=== PATIENT | female | born 1990 | race Caucasian/White ===

== ENCOUNTER 2020-11-26 17:38 | Inpatient (IN) ==
[2020-11-26] MEDS ORDERED: OXYTOCIN 30 UNITS/500 ML BAG IV PRN (18:51)
[2020-11-26 19:15] LABS: Hematocrit (blood only) 39.7 % (37-47); Hemoglobin 13.6 g/dL (12.0-16.0); Mean Corpuscular Hemoglobin 31.4 pg (25-34); Mean Corpuscular Hgb Conc 34.3 g/dL (32-36); Mean Corpuscular Volume 91.7 fL (80-100); Mean Platelet Volume 9.7 fL (7.4-10.4); Platelet Count 199 K/uL (130-400); RDW Coefficient of Variation 13.5 % (11.5-14.5); RDW Standard Deviation 45.3 fL (36.4-46.3); Red Blood Count 4.33 M/uL (4.2-5.4); White Blood Count 13.69 K/uL (4.8-10.8)
--- NOTE | 2020-11-26 19:32 | History & Physical Report ---
Date of Service November 26, 2020 Assessment & Plan (1) Post term over 40 weeks: (2) PROM (premature rupture of membranes): Plan: admit, iv, labs fhts categ 1, will see how prom progresses labor. History of Present Illness Chief Complaint: regular ctx Primary Care Provider: Romel Zapien Jr, DO 30yo at 40 6/7 wks speedy presents to L&D with above cc. She was at first thinking her water may be leaking but nitrazine neg and no pads soaked. Her cx was unchanged and she was walking. Then had gross srom clear fluid and admitted. No vb. +FM. PNC c/b 1. h/o covid vaccine and then +covid in sep 2020 PNL Rh pos, RI, GBS neg OBH: G1 GYNH: nl paps no stds Allergies Allergy/AdvReac Type Severity Reaction Status Date / Time No Known Allergies Allergy Verified 11/26/20 18:25 Home Medications Medication Instructions Recorded Confirmed Type prenat.vits,hellen,jgd-jjuo-jytlr 1 tab PO DAILY 08/03/20 11/26/20 History ferrous sulfate 325 mg (65 mg 325 mg PO Q OTHER DAY 11/26/20 11/26/20 History iron) tablet (iron) Patient History Surgical History (Updated 08/03/20 @ 13:28 by Rebekah King) S/P wisdom tooth extraction Family History (Updated 08/03/20 @ 13:10 by Rebekah King) Other Cancer Social History (Updated 08/03/20 @ 13:12 by Rebekah King) Smoking Status: Never smoker Hx Alcohol Use: No Hx Substance Use: No Preferred Language: Georgian Communication Ability: Effective Beliefs That Will Affect Care: None marital status: marital status details: Salvador (29) [phone] Current Living Situation: Spouse and Family Current Living Situation Comment: parents, sister, current occupational status: employed current occupation: write grants, works non profit Assistive Devices: Apnea Monitor Review of Systems as per Subjective / HPI Physical Exam Constitutional: WD/WN, vitals as above (lying over ball on floor. rocking) Neurologic: grossly normal Psychiatric: A+Ox3, euthymic affect Genitourinary: OB Exam Monitor Tracing: + external FHT monitor used, + external uterine monitor used (q3), + category I and + normal FHT variability Results & Data ([facility]) Vital Signs (Past 12 Hours) Vital Signs Temp Pulse Resp BP 11/26/20 19:15 97.7 F 118 H 20 122/72 11/26/20 17:47 111 H 127/75 11/26/20 17:44 98.4 F 20 Coding Level of Care Code None Diagnoses Post term over 40 weeks O48.0 PROM (premature rupture of membranes) O42.90
[2020-11-26] MEDS ORDERED: fentaNYL citrate 100 MCG/2 ML VIAL ONE (20:43)
[2020-11-26] MEDS ORDERED: SODIUM CHLORIDE 0.9% INJ 10 ML VIAL ONE (20:43)
[2020-11-26] MEDS ORDERED: BUPIVACAINE 0.25% 30 ML VIAL ONE (20:43)
[2020-11-26] MEDS ORDERED: ePHEDrine sulfate 50 MG/ML AMP ONE (20:43)
[2020-11-26] MEDS ORDERED: fentaNYL 2MCG/ML ROPIVACAINE 1.25MG/ML 100 ML BAG EPI ONE (20:43)
[2020-11-26] MEDS: LACTATED RINGER'S 1,000 ML IV PRN ×2 (20:50→22:29)
--- NOTE | 2020-11-26 21:29 | Anesthesiology Consultation ---
Date of Service November 26, 2020 Assessment & Plan Chart Review Chart Review: Patient NOT seen in Pre Admission Testing and Acceptable Risk for Labor Epidural Consults Requested none ASA ASA2 Proposed Anesthesia Anesthesia Type: Labor Epidural Risk / Benefits Reviewed With: PT / POA / Parent / Guardian, Accepts Plan and Informed Consent Obtained History Height/Weight Height: 5 ft 4 in Weight: 71.668 kg Allergies Allergy/AdvReac Type Severity Reaction Status Date / Time No Known Allergies Allergy Verified 11/26/20 18:25 Medications Home Medications Medication Instructions Recorded Confirmed Last Taken prenat.vits,hellen,ckg-jdtw-kkcnx 1 tab PO DAILY 08/03/20 11/26/20 11/26/20 ferrous sulfate 325 mg (65 mg 325 mg PO Q OTHER DAY 11/26/20 11/26/20 11/25/20 iron) tablet (iron) Active Medications Generic Name Dose Route Start Last Admin Trade Name Freq PRN Reason Stop Dose Admin Lactated Ringer's 1,000 mls @ 125 mls/hr 11/26/20 18:51 11/26/20 20:50 Lr IV 11/28/20 18:50 999 mls/hr .Q8H PRN Infusion L&D Protocol Protocol Exercise / Class Metabolic Activity II 4-5 Yardwork/Stairs/Walk up hill Past Family History Family History (Updated 08/03/20 @ 13:10 by Rebekah King) Other Cancer Past Surgical History Surgical History (Updated 08/03/20 @ 13:28 by Rebekah King) S/P wisdom tooth extraction Past Anesthesia History No Hx of Anesthesia Complications and No Family Hx of Anesthesia Complications History of PONV No Hx of PONV and No Hx of Motion Sickness Social History Smoking Status: Never smoker Hx Alcohol Use: No Hx Substance Use: No Physical Exam Vital Signs Last Vital Signs Temp 36.6 C 11/26/20 21:05 Pulse 118 H 11/26/20 19:15 Resp 20 11/26/20 19:15 BP 122/72 11/26/20 19:15 ENMT Mouth: no dentition abnormality Thyromental Distance: > or= 3.5 Finger Breadths Mallampati Class: II Neck normal visual inspection Respiratory normal respiratory effort Auscultation: lungs clear to auscultation bilaterally Cardiovascular Rate/Rhythm: regular rate and regular rhythm Psychiatric Orientation: alert Testing Laboratory Results 11/26/20 19:07
[2020-11-26] MEDS ORDERED: diphenhydrAMINE 50 MG/ML VIAL IV PRN (21:44)
[2020-11-26] MEDS ORDERED: ePHEDrine sulfate 50 MG/ML AMP IV PRN (21:44)
[2020-11-26] MEDS ORDERED: fentaNYL 2MCG/ML ROPIVACAINE 1.25MG/ML 100 ML BAG EPI PRN (21:44)
[2020-11-26] MEDS ORDERED: NALOXONE HCL 1 MG in SODIUM CHLORIDE 0.9% 1000ML 1,000 ML IV PRN (21:44)
[2020-11-26] MEDS ORDERED: NALOXONE HCL 0.4 MG/1 ML VIAL/CARP IV PRN (21:44)
[2020-11-26] MEDS ORDERED: ONDANSETRON INJ 2 MG/ML 2 ML VIAL IV PRN (21:44)
[2020-11-26] MEDS ORDERED: PROMETHAZINE HCL 6.25 MG in SODIUM CHLORIDE 0.9% 50 ML IV PRN (21:44)
[2020-11-26] MEDS ORDERED: NALBUPHINE HCL INJ 10 MG/ML AMP IV PRN (21:44)
--- NOTE | 2020-11-26 22:14 | Labor Progress Brief Note ---
Date of Service November 26, 2020 Subjective comfortable after epidural Assessment & Plan (1) Post term over 40 weeks: (2) PROM (premature rupture of membranes): Plan: good cx change. fhts reassuring Physical Exam Constitutional: WD/WN, vitals as above Gastrointestinal (Abdomen): soft gravid nt, efw 7-8# Genitourinary: Manual OB Exam: + cervical dilation (7-8cm), + cervical effacement 100% and + station 0 OB Exam Monitor Tracing: + external FHT monitor used, + external uterine monitor used, + category II, + normal FHT variability and + variable decelerations (recent variable, recovered and now +scalp stim response and spont accels) Results & Data ([facility]) Vital Signs (Past 12 Hours) Vital Signs Temp Pulse Resp BP Pulse Ox 11/26/20 22:07 96 H 103/54 L 100 11/26/20 22:03 114 H 92/54 L 11/26/20 22:02 110 H 98 11/26/20 22:00 113 H 109/52 L 11/26/20 21:57 109 H 99 11/26/20 21:52 103 H 98 11/26/20 21:51 100 H 112/56 L 11/26/20 21:47 109 H 99 11/26/20 21:45 104 H 114/58 L 11/26/20 21:43 100 H 120/60 11/26/20 21:42 103 H 98 11/26/20 21:41 117 H 130/65 11/26/20 21:39 113 H 129/67 11/26/20 21:37 117 H 99 11/26/20 21:33 113 H 130/71 11/26/20 21:32 113 H 99 11/26/20 21:05 97.9 F 11/26/20 19:15 97.7 F 118 H 20 122/72 11/26/20 17:47 111 H 127/75 11/26/20 17:44 98.4 F 20 Coding Level of Care Code None Diagnoses Post term over 40 weeks O48.0 PROM (premature rupture of membranes) O42.90
[2020-11-27] MEDS: LACTATED RINGER'S 1,000 ML IV PRN (06:22)
[2020-11-27] MEDS ORDERED: OXYTOCIN 30 UNITS/500 ML BAG IV PRN ×2 (07:10→08:38)
--- NOTE | 2020-11-27 07:10 | Labor Progress Brief Note ---
Date of Service November 27, 2020 Subjective pushing Assessment & Plan (1) Post term over 40 weeks: (2) PROM (premature rupture of membranes): Plan: cont 2nd stage, fhts categ 1. change position to help rotation. pit aug if needed. Admission and Anticipated Discharge Date Admission Date: November 26, 2020 Physical Exam Constitutional: WD/WN, vitals as above Genitourinary: Manual OB Exam: + cervical dilation (lip reduced with one push), + cervical effacement 100% and + station + 2 OB Exam Monitor Tracing: + external FHT monitor used, + external uterine monitor used (q3-5), + category I and + normal FHT variability Results & Data ([facility]) Vital Signs (Past 12 Hours) Vital Signs Temp Pulse Resp BP Pulse Ox 11/27/20 07:07 115 H 97 11/27/20 07:02 120 H 121/58 L 97 11/27/20 06:57 118 H 97 11/27/20 06:52 133 H 97 11/27/20 06:49 133 H 92 11/27/20 06:47 144 H 96 11/27/20 06:45 127 H 142/63 H 11/27/20 06:42 134 H 96 11/27/20 06:37 117 H 96 11/27/20 06:32 111 H 97 11/27/20 06:31 110 H 127/71 11/27/20 06:30 20 11/27/20 06:27 109 H 96 11/27/20 06:22 108 H 96 11/27/20 06:17 105 H 96 11/27/20 06:15 107 H 116/55 L 11/27/20 06:12 110 H 97 11/27/20 06:08 124 H 94 11/27/20 06:07 112 H 96 11/27/20 06:02 115 H 96 11/27/20 06:01 118 H 113/58 L 11/27/20 06:00 20 11/27/20 05:57 113 H 97 11/27/20 05:52 112 H 97 11/27/20 05:47 112 H 97 11/27/20 05:46 107 H 123/65 11/27/20 05:42 111 H 97 11/27/20 05:39 98.2 F 11/27/20 05:37 111 H 97 11/27/20 05:32 99 H 96 11/27/20 05:30 102 H 16 105/52 L 11/27/20 05:27 95 H 96 11/27/20 05:22 100 H 96 11/27/20 05:17 102 H 95 11/27/20 05:15 103 H 110/55 L 11/27/20 05:12 108 H 96 11/27/20 05:07 99 H 96 11/27/20 05:02 100 H 96 11/27/20 05:00 105 H 16 105/51 L 11/27/20 04:57 94 H 95 11/27/20 04:52 98 H 95 11/27/20 04:47 105 H 96 11/27/20 04:46 99 H 109/53 L 11/27/20 04:42 104 H 96 11/27/20 04:37 97 H 96 11/27/20 04:32 96 H 96 11/27/20 04:30 97 H 16 105/51 L 11/27/20 04:27 99 H 96 11/27/20 04:22 98 H 96 11/27/20 04:17 104 H 97 11/27/20 04:16 96 H 102/53 L 11/27/20 04:12 100 H 96 11/27/20 04:07 105 H 97 11/27/20 04:02 106 H 98 11/27/20 04:01 104 H 118/57 L 11/27/20 04:00 16 11/27/20 03:57 103 H 97 11/27/20 03:52 104 H 98 11/27/20 03:47 108 H 97 11/27/20 03:45 107 H 120/59 L 11/27/20 03:42 117 H 97 11/27/20 03:37 115 H 97 11/27/20 03:32 114 H 98 11/27/20 03:31 107 H 117/57 L 11/27/20 03:30 98.6 F 18 11/27/20 03:27 102 H 97 11/27/20 03:22 104 H 97 11/27/20 03:17 101 H 98 11/27/20 03:16 104 H 106/58 L 11/27/20 03:12 104 H 97 11/27/20 03:07 102 H 97 11/27/20 03:02 109 H 108/63 97 11/27/20 02:57 101 H 96 11/27/20 02:52 108 H 96 11/27/20 02:47 106 H 96 11/27/20 02:45 100 H 103/55 L 11/27/20 02:42 100 H 96 11/27/20 02:37 96 H 96 11/27/20 02:32 103 H 95 11/27/20 02:30 101 H 16 101/53 L 11/27/20 02:27 98 H 95 11/27/20 02:22 102 H 96 11/27/20 02:20 97 H 94 11/27/20 02:17 99 H 96 11/27/20 02:15 100 H 100/55 L 11/27/20 02:12 97 H 95 11/27/20 02:08 95 H 94 11/27/20 02:07 94 H 94 11/27/20 02:02 100 H 95 11/27/20 02:00 101 H 16 98/52 L 11/27/20 01:57 103 H 96 11/27/20 01:52 101 H 96 11/27/20 01:47 100 H 96 11/27/20 01:45 99 H 96/50 L 11/27/20 01:42 104 H 96 11/27/20 01:37 101 H 96 11/27/20 01:32 105 H 96 11/27/20 01:31 102 H 100/55 L 11/27/20 01:30 18 11/27/20 01:27 103 H 96 11/27/20 01:22 103 H 98 11/27/20 01:17 114 H 95 11/27/20 01:16 127 H 117/64 11/27/20 01:12 113 H 98 11/27/20 01:09 98.6 F 11/27/20 01:07 118 H 97 11/27/20 01:02 108 H 96 11/27/20 01:00 106 H 16 118/61 11/27/20 00:57 110 H 97 11/27/20 00:52 103 H 96 11/27/20 00:47 105 H 97 11/27/20 00:45 112 H 113/57 L 11/27/20 00:42 114 H 97 11/27/20 00:37 107 H 97 11/27/20 00:32 106 H 97 11/27/20 00:30 113 H 16 110/59 L 11/27/20 00:27 106 H 97 11/27/20 00:22 102 H 97 11/27/20 00:17 102 H 97 11/27/20 00:15 107 H 114/60 11/27/20 00:12 107 H 97 11/27/20 00:07 100 H 97 11/27/20 00:02 103 H 97 11/27/20 00:00 110 H 16 108/58 L 11/26/20 23:57 101 H 98 11/26/20 23:52 105 H 97 11/26/20 23:47 104 H 97 11/26/20 23:45 104 H 106/56 L 11/26/20 23:42 98 H 97 11/26/20 23:37 110 H 97 11/26/20 23:32 112 H 98 11/26/20 23:31 106 H 119/57 L 11/26/20 23:30 18 11/26/20 23:27 99 H 98 11/26/20 23:22 115 H 98 11/26/20 23:17 119 H 98 11/26/20 23:15 108 H 103/58 L 11/26/20 23:12 98.4 F 98 H 99 11/26/20 23:07 95 H 97 11/26/20 23:02 94 H 97 11/26/20 23:00 16 11/26/20 22:59 96 H 99/52 L 11/26/20 22:57 95 H 97 11/26/20 22:54 102 H 98/55 L 11/26/20 22:52 90 97 11/26/20 22:49 96 H 96/47 L 11/26/20 22:47 88 97 11/26/20 22:45 89 18 97/51 L 11/26/20 22:42 97 H 97 11/26/20 22:40 93 H 16 100/50 L 11/26/20 22:37 94 H 97 11/26/20 22:34 97 H 16 104/51 L 11/26/20 22:32 95 H 98 11/26/20 22:30 16 11/26/20 22:29 103 H 16 106/50 L 11/26/20 22:27 108 H 98 11/26/20 22:26 101 H 18 115/51 L 11/26/20 22:22 100 H 99 11/26/20 22:19 102 H 18 134/56 L 11/26/20 22:17 103 H 98 11/26/20 22:15 103 H 16 95/51 L 11/26/20 22:12 96 H 99 11/26/20 22:07 96 H 16 103/54 L 100 11/26/20 22:03 114 H 18 92/54 L 11/26/20 22:02 110 H 98 11/26/20 22:00 113 H 18 109/52 L 11/26/20 21:57 109 H 99 11/26/20 21:52 103 H 98 11/26/20 21:51 100 H 16 112/56 L 11/26/20 21:47 109 H 99 11/26/20 21:45 104 H 18 114/58 L 11/26/20 21:43 100 H 20 120/60 11/26/20 21:42 103 H 98 11/26/20 21:41 117 H 18 130/65 11/26/20 21:39 113 H 18 129/67 11/26/20 21:37 117 H 99 11/26/20 21:33 113 H 18 130/71 11/26/20 21:32 113 H 99 11/26/20 21:05 97.9 F 11/26/20 19:15 97.7 F 118 H 20 122/72 Coding Level of Care Code None Diagnoses Post term over 40 weeks O48.0 PROM (premature rupture of membranes) O42.90
--- NOTE | 2020-11-27 08:24 | Delivery Summary ---
Vaginal Delivery Summary Date of Service November 27, 2020 Vaginal Delivery Summary and 2nd Degree LAC The patient dilated to complete and pushed to deliver a viable female Apgars 8 and 9 via over 2nd degree perineal laceration. Mouth and nose bulb suctioned at perineum. Meconium fluid noted. Shoulders and body delivered with ease. Infant was vigorous and crying at . Cord clamped at 30 seconds of life and infant to maternal abdomen where the cord was then doubly clamped and cut. Placenta delivered spontaneously and intact, three-vessel cord. Hemostasis achieved with dilute pitocin and uterine massage and drainage of the bladder for approximately 100 cc under sterile conditions. Laceration repaired in routine fashion in layers with 3-0 vicryl. Cervix and sulci intact. EBL 300 cc. Mother and baby stable in recovery. [facility] [place] Vaginal Delivery Charge Vaginal Delivery Codes: 84958 global code for the antepartum, delivery, and post- Delivery Type Details: and 2nd Degree LAC
[2020-11-27] MEDS ORDERED: bisacodyL 10 MG SUPP PR PRN (08:38)
[2020-11-27] MEDS ORDERED: HYDROCORTISONE ACETATE 25 MG SUPP PR PRN (08:38)
[2020-11-27] MEDS ORDERED: DIPHTHERIA/TETANUS/PERTUSSIS 0.5 ML SYR/VIAL IM ONE (08:38)
[2020-11-27] MEDS ORDERED: ACETAMINOPHEN 325 MG TAB PO PRN (08:38)
[2020-11-27] MEDS ORDERED: BENZOCAINE 20% AER SPR 82.5 GM CAN EXT PRN (08:38)
[2020-11-27] MEDS ORDERED: oxyCODONE/ACETAMINOPHEN 5mg/325mg TAB PO PRN (08:38)
[2020-11-27] MEDS ORDERED: SUPERCREAM 0.870% 15 GM JAR EXT PRN (08:38)
[2020-11-27] MEDS ORDERED: OXYTOCIN 20 UNITS in LACTATED RINGER'S 1,000 ML IV SCH (09:00)
[2020-11-27] MEDS: IBUPROFEN 600 MG TAB PO PRN ×3 (10:17→20:43)
--- NOTE | 2020-11-27 10:33 | Anesthesia Procedure Note ---
Date of Service November 27, 2020 Anesthesia Post Epidural Note Vital Signs Vital Signs: Temp Pulse Resp BP Pulse Ox 36.9 C 97 H 20 112/60 96 11/27/20 07:10 11/27/20 10:21 11/27/20 10:20 11/27/20 10:21 11/27/20 08:09 Pain Intensity Bilateral Abdomen: Pain Intensity: 4 Perineal: Pain Intensity: 4 Notes Mental Status: alert / awake / arousable and participated in evaluation Nausea / Vomiting: adequately controlled Pain: adequately controlled Airway Patency, RR, SpO2: stable & adequate BP & HR: stable & adequate Hydration State: stable & adequate Neuraxial Anesthesia: was administered and sensory block is resolving Anesthetic Complications: no major complications apparent and Pt Satisfied with anesthetic care Epidural: Removed without complications and With tip intact Notes: Epidural site clean, dry and intact. No signs of edema, erythema or bruising at insertion site. Pt instructed to request anesthesia if she has residual lower extremity numbness or if she develops lower extremity pain or weakness, back pain or headache.
[2020-11-27] MEDS: DOCUSATE SODIUM 100 MG CAP PO SCH (20:43)
[2020-11-28] MEDS: IBUPROFEN 600 MG TAB PO PRN (05:52)
[2020-11-28 06:25] LABS: Hematocrit (blood only) 35.2 % (37-47); Hemoglobin 11.4 g/dL (12.0-16.0)
--- NOTE | 2020-11-28 06:29 | Obstetrical Progress Note ---
Date of Service <Kishor Ramos DO - Last Filed: 11/28/20 06:29> November 28, 2020 Assessment & Plan <Kishor Ramos - Last Filed: 11/28/20 06:29> (1) care following vaginal delivery: 30 yo PPD 1 s/p at 41weeks -Continue routine care. Possible D/C this afternoon. -Vitals reviewed- HDS, afebrile -A+, GBS-, Rubella immune -Encourage ambulation, regular diet -Pain control with ibuprofen, acetaminophen PRN -Encouraged -F/u in 6 weeks with OB <Teri Lechuga, - Last Filed: 11/28/20 08:05> (1) care following vaginal delivery: Subjective <Kishor Ramos - Last Filed: 11/28/20 06:29> Ambulation: ambulating normally Voiding: no voiding problems Passing Gas:: Yes Diet Tolerance:: regular diet Lochia:: Moderate Feeding Type:: breast feeding Current Pain Level(1-10): 3 PPD 1 s/p . Patient seen and examined at bedside. Reports no acute overnight events. Review of Systems All systems reviewed & are unremarkable except as noted in HPI & below Physical Exam <Kishor Ramos DO - Last Filed: 11/28/20 06:29> General: Alert, oriented, no acute distress Cardiac: Regular rate and rhythm, normal S1, S2. No murmurs appreciated. Respiratory: Clear to auscultation b/l with good air flow entry, symmetric chest rise and fall. No wheezes or crackles. No increased work of breathing or accessory muscle use Abdomen: Soft, nontender, nondistended. Fundus firm and palpable at the level of the umbilicus. No guarding or rebound. Skin: No rashes or lesions Extremities: Warm, dry, well-perfused with capillary refill <2s b/l. No lower extremity edema, erythema or swelling. Negative Rosa Maria's sign b/l. Results & Data ([facility]) <Kishor Ramos - Last Filed: 11/28/20 06:29> Vital Signs (Past 12 Hours) Vital Signs Temp Pulse Resp BP Pulse Ox 11/28/20 05:30 99 H 18 113/76 11/27/20 23:25 36.3 C L 112 H 18 125/77 11/27/20 19:50 36.9 C 100 H 20 112/66 96 <Teri Lechuga DO - Last Filed: 11/28/20 08:05> Co-Signing Physician Notes Resident Physician Supervision Note: I was present with Dr. Ramos during the history and exam. I discussed the case with the resident and agree with the findings and plan as documented in the note. Any exceptions or clarifications are listed here: PPD#1 doing well, ej es discharge home. Reviewed DC instructions, followup in office 6w. Documented By: eTri Lechuga DO
[2020-11-28] MEDS ORDERED: PRENATAL VITAMIN 1 TAB PO SCH (08:00)
[2020-11-28] MEDS: DOCUSATE SODIUM 100 MG CAP PO SCH (08:54)
[2020-11-28] MEDS ORDERED: bisacodyL 5 MG TABEC PO SCH (20:00)
== END 2020-11-28 12:35 | disposition home or self-care (01) | DRG 807 ==
LOC: OPB 17:38 → 4S1 17:39 → 4S2 11-27 11:44

== ENCOUNTER 2023-01-24 09:21 | Inpatient (IN) ==
[2023-01-24] MEDS ORDERED: LIDOCAINE 1% LOCAL 20 ML VIAL INFIL PRN (10:10)
[2023-01-24] MEDS ORDERED: OXYTOCIN 30 UNITS/NSS 30 UNITS/500 ML BAG IV PRN ×2 (10:10→16:22)
[2023-01-24] MEDS: LACTATED RINGER'S 1,000 ML IV PRN ×2 (10:30→12:08)
[2023-01-24 10:37] LABS: Hematocrit (blood only) 42.7 % (37.0-47.0); Hemoglobin 14.4 g/dl (12.0-16.0); Mean Corpuscular Hgb Conc 33.7 g/dL (32.0-36.0); Mean Corpuscular Volume 91.8 fL (80.0-100.0); Mean Platelet Volume 9.6 fL (9.4-12.4); Platelet Count 201 K/uL (130-400); RDW Coefficient of Variation 13.3 % (11.5-14.5); RDW Standard Deviation 45.1 fL (36.4-46.3); Red Blood Count 4.65 M/uL (4.20-5.40); White Blood Count 9.26 K/ul (4.8-10.8)
[2023-01-24] MEDS ORDERED: SODIUM CHLORIDE 0.9% PF INJ 10 ML VIAL ONE (10:46)
[2023-01-24] MEDS ORDERED: ePHEDrine sulfate 50 MG/ML AMP ONE (10:46)
[2023-01-24] MEDS ORDERED: BUPIVACAINE 0.25% PF 30 ML VIAL ONE (10:46)
[2023-01-24] MEDS ORDERED: fentaNYL citrate PF 100 MCG/2 ML VIAL ONE (10:46)
[2023-01-24] MEDS ORDERED: LIDOCAINE 2%/EPINEPHRINE 1:200,000 20 ML PF ONE (10:46)
[2023-01-24] MEDS ORDERED: fentANYL 2 MCG/ML BUPIVacaine 0.125%-NSS 100ML BAG ONE (10:46)
--- NOTE | 2023-01-24 10:53 | History & Physical Report ---
Date of Service January 24, 2023 Assessment & Plan (1) Encounter for supervision of normal in multigravida: Plan: AUBREE Calculator Estimated Delivery Date Method Current WG Current Estimate 01/19/23 Ultrasound #1 40w 2d Other Estimates 01/14/23 LMP (Certain) 41w 0d LMP: 04/09/22 : 2 Full term: 1 Premature: 0 Total Number of Induced Abortions: 0 Total Number of Spontaneous Abortions: 0 Ectopics: 0 Multiple births: 0 Number of Living Children: 1 and Delivery Plans Transfer into care @ 33+ weeks Patient reports received flu shot admit Admission and Anticipated Discharge Date Admission Date: January 24, 2023 History of Present Illness Primary Care Provider: Romel Zapien Jr, DO presents in labor Allergies Allergy/AdvReac Type Severity Reaction Status Date / Time No Known Allergies Allergy Verified 01/21/23 10:35 Home Medications Medication Instructions Recorded Confirmed Type prenat.vits,hellen,suv-vnvl-fdjkz 1 tab PO DAILY 08/03/20 01/24/23 History RSV vac, preF A and preF B(PF) 120 0.5 ml IM ONCE #1 ea 12/17/22 01/21/23 Rx mcg/0.5 mL IM solution ([facility]) Patient History Medical History History of chicken pox Surgical History S/P wisdom tooth extraction Family History (Updated 12/01/22 @ 15:09 by Cecille Felipe) Grandfather (Maternal) Skin cancer Family/Other Breast cancer cousin Denies family history of Ovarian cancer Colorectal cancer Social History (Updated 12/01/22 @ 15:10 by Cecille Felipe) Smoking Status: Never smoker Second Hand Exposure: No; Do You Dip or Chew Tobacco: No; Hx Alcohol Use: No Hx Substance Use: No Preferred Language: Romansh Communication Ability: Effective Overlock Operator Required: No Beliefs That Will Affect Care: None marital status: marital status details: Salvador Fairchild (31) [phone] Current Living Situation: Family Current Living Situation Comment: lives with spouse, child, no pets current occupational status: employed current occupation: write grants, works non profit Other Information That Helps Us Care for You: No Feels Safe at Home: Yes Safety Concerns: Feels Safe At This Time Assistive Devices: None Physical Exam Constitutional: WD/WN, vitals as above well developed and well nourished Respiratory: normal respiratory effort, lungs clear to auscultation normal respiratory effort Cardiovascular: RRR, no murmur, no edema Gastrointestinal (Abdomen): normal bowel sounds, soft, nontender, no hepatosplenomegaly Results & Data Vital Signs (Past 12 Hours) Vital Signs Temp Pulse Resp BP 01/24/23 09:49 98.4 F 114 H 20 135/77 01/24/23 09:39 114 H 135/77 Coding Level of Care Code None Diagnoses Encounter for supervision of normal in multigravida Z34.80
--- NOTE | 2023-01-24 11:06 | Anesthesiology Consultation ---
Date of Service January 24, 2023 Assessment & Plan Chart Review Chart Review: Acceptable Risk for Surgery and Patient NOT seen in Pre Admission Testing Consults Requested none ASA ASA2 Proposed Anesthesia Anesthesia Type: Labor Epidural and CSE History Height/Weight Height: 5 ft 4 in Weight: 72.575 kg Allergies Allergy/AdvReac Type Severity Reaction Status Date / Time No Known Allergies Allergy Verified 01/21/23 10:35 Medications Home Medications Medication Instructions Recorded Confirmed Last Taken prenat.vits,hellen,rkh-evkh-oaxtk 1 tab PO DAILY 08/03/20 01/24/23 01/23/23 RSV vac, preF A and preF B(PF) 120 0.5 ml IM ONCE #1 ea 12/17/22 01/21/23 Unknown mcg/0.5 mL IM solution (Abrysvo) Past Medical History Medical History History of chicken pox Exercise / Class Metabolic Activity II 4-5 Yardwork/Stairs/Walk up hill Past Family History Family History Grandfather (Maternal) Skin cancer Family/Other Breast cancer cousin Denies family history of Ovarian cancer Colorectal cancer Past Surgical History Surgical History S/P wisdom tooth extraction Past Anesthesia History No Hx of Anesthesia Complications and No Family Hx of Anesthesia Complications History of PONV No Hx of PONV and No Hx of Motion Sickness Social History Smoking Status: Never smoker Do You Dip or Chew Tobacco: No Hx Alcohol Use: No Hx Substance Use: No Physical Exam Vital Signs Last Vital Signs Temp 36.9 C 01/24/23 09:49 Pulse 114 H 01/24/23 09:49 Resp 20 01/24/23 09:49 BP 135/77 01/24/23 09:49 Testing Laboratory Results 01/24/23 10:19 Electrocardiogram Date: 01/23/21 Findings: + NSR @ (@ 80 w/ SA; Low voltage QRS)
[2023-01-24] MEDS ORDERED: ROPIVACAINE 0.5% PF 5 MG/ML 20 ML VIAL EPI PRN (11:44)
[2023-01-24] MEDS ORDERED: NALOXONE HCL 1 MG in SODIUM CHLORIDE 0.9% 1,000 ML IV PRN (11:44)
[2023-01-24] MEDS ORDERED: ePHEDrine sulfate 50 MG/ML AMP IV PRN (11:44)
[2023-01-24] MEDS ORDERED: NALOXONE HCL 0.4 MG/1 ML VIAL/CARP IV PRN (11:44)
[2023-01-24] MEDS ORDERED: diphenhydrAMINE 50 MG/ML VIAL IV PRN (11:44)
[2023-01-24] MEDS ORDERED: SODIUM CHLORIDE 0.9% PF INJ 10 ML VIAL EPI STA (11:44)
[2023-01-24] MEDS ORDERED: NALBUPHINE HCL 5 MG in SYRINGE 0 ML IV PRN (11:44)
[2023-01-24] MEDS ORDERED: BUPIVACAINE 0.25% PF 30 ML VIAL EPI PRN (11:44)
[2023-01-24] MEDS ORDERED: fentaNYL citrate PF 100 MCG/2 ML VIAL EPI STA (11:44)
[2023-01-24] MEDS ORDERED: fentANYL 2 MCG/ML BUPIVacaine 0.125%-NSS 100ML BAG EPI PRN (11:44)
[2023-01-24] MEDS ORDERED: LIDOCAINE 2% MPF LOCAL 5 ML VIAL EPI PRN (11:44)
[2023-01-24] MEDS ORDERED: BUPIVACAINE 0.25% PF 30 ML VIAL EPI STA (11:44)
[2023-01-24] MEDS ORDERED: LIDOCAINE 2%/EPINEPHRINE 1:200,000 20 ML PF EPI STA (11:44)
[2023-01-24] MEDS ORDERED: SODIUM CHLORIDE 0.9% PF INJ 10 ML VIAL EPI PRN (11:44)
[2023-01-24] MEDS ORDERED: PROMETHAZINE HCL 25 MG in SODIUM CHLORIDE 0.9% 50 ML IV PRN (11:44)
[2023-01-24] MEDS ORDERED: fentaNYL citrate PF 100 MCG/2 ML VIAL EPI PRN (11:44)
[2023-01-24] MEDS ORDERED: ONDANSETRON INJ 2 MG/ML 2 ML VIAL IV PRN (11:44)
--- NOTE | 2023-01-24 16:16 | Delivery Summary ---
Vaginal Delivery Summary Date of Service January 24, 2023 Vaginal Delivery Summary and 2nd Degree LAC Spontaneous vaginal delivery the patient arrived in active labor group B strep negative requested epidural after this artificial rupture membranes was performed she quickly progressed to fully dilated pushing a baby with only 1 contraction in occiput anterior position once the head was delivered mouth and nares were then suction there was no nuchal cord gentle traction on the baby no excessive force live vigorous female infant cord clamped and cut cord blood obtained placenta removed with traction IV Pitocin started there was a second- degree tear repaired with 3-0 Vicryl in the usual fashion sponge and instrument counts were correct estimated blood loss 250 mL [facility] Vaginal Delivery Charge Delivery Type Details: and 2nd Degree LAC
[2023-01-24] MEDS ORDERED: ACETAMINOPHEN 325 MG TAB PO PRN (16:22)
[2023-01-24] MEDS ORDERED: BENZOCAINE 20% SPRY 85 APPLN/85 GM CAN EXT PRN (16:22)
[2023-01-24] MEDS ORDERED: HYDROCORTISONE ACETATE 25 MG SUPP PR PRN (16:22)
[2023-01-24] MEDS ORDERED: bisacodyL 10 MG SUPP PR PRN (16:22)
[2023-01-24] MEDS ORDERED: DIPHTHERIA/TETANUS/PERTUSSIS Vaccine (Tdap, Age 7+yrs) 0.5mL SYR/VL IM ONE (16:22)
--- NOTE | 2023-01-24 17:29 | Anesthesia Procedure Note ---
Date of Service January 24, 2023 Anesthesia Post Epidural Note Vital Signs Vital Signs: Temp Pulse Resp BP Pulse Ox 36.9 C 96 H 18 114/56 L 97 01/24/23 16:10 01/24/23 17:25 01/24/23 16:55 01/24/23 17:25 01/24/23 16:16 Notes Mental Status: alert / awake / arousable Nausea / Vomiting: adequately controlled Pain: adequately controlled Airway Patency, RR, SpO2: stable & adequate BP & HR: stable & adequate Hydration State: stable & adequate Neuraxial Anesthesia: was administered and sensory block is resolving Anesthetic Complications: no major complications apparent Epidural: Removed without complications and With tip intact
[2023-01-24] MEDS: DOCUSATE SODIUM 100 MG CAP PO SCH (20:12)
[2023-01-24] MEDS: IBUPROFEN 600 MG TAB PO PRN (20:12)
[2023-01-25 07:23] LABS: Hematocrit (blood only) 36.1 % (37.0-47.0); Hemoglobin 11.9 g/dl (12.0-16.0); Mean Corpuscular Hemoglobin 31.1 pg (25.0-34.0); Mean Corpuscular Volume 94.3 fL (80.0-100.0); Mean Platelet Volume 9.6 fL (9.4-12.4); Platelet Count 167 K/uL (130-400); RDW Coefficient of Variation 13.6 % (11.5-14.5); RDW Standard Deviation 46.5 fL (36.4-46.3); Red Blood Count 3.83 M/uL (4.20-5.40); White Blood Count 10.96 K/ul (4.8-10.8)
--- NOTE | 2023-01-25 07:24 | Obstetrical Progress Note ---
Date of Service January 25, 2023 Assessment & Plan (1) Encounter for supervision of normal in multigravida: PPD #1 anticipate d/c later today Subjective Ambulation: ambulating normally Voiding: no voiding problems Lochia:: Small Physical Exam Constitutional WD/WN, vitals as above well developed and well nourished Respiratory normal respiratory effort, lungs clear to auscultation normal respiratory effort Cardiovascular RRR, no murmur, no edema Gastrointestinal (Abdomen) normal bowel sounds, soft, nontender, no hepatosplenomegaly Results & Data Vital Signs (Past 12 Hours) Vital Signs Temp Pulse Resp BP O2 Del Method 01/25/23 04:35 97.7 F 87 16 103/66 Room Air 01/25/23 00:04 97.9 F 67 16 99/59 L Room Air 01/24/23 20:30 98.1 F 76 16 103/65 Room Air
[2023-01-25] MEDS: IBUPROFEN 600 MG TAB PO PRN (07:39)
[2023-01-25] MEDS: DOCUSATE SODIUM 100 MG CAP PO SCH (07:39)
[2023-01-25] MEDS ORDERED: PRENATAL VITAMIN 1 TAB PO SCH (08:00)
[2023-01-25] MEDS ORDERED: bisacodyL 5 MG TABEC PO SCH (20:00)
== END 2023-01-25 17:00 | disposition home or self-care (01) | DRG 807 ==
LOC: OPB 09:21 → 4S1 09:25 → 4E2 19:08